=== PATIENT | female | born 1980 | race Two or more races ===

== ENCOUNTER 2024-04-21 12:16 | Emergency (ER) | payer SELFPAY ==
[~2024-04-21] VITALS: Ht 154.9 cm; Wt 113.4 kg
[~2024-04-21 12:16] MED LIST: [UNRECOGNIZED DRUG - REMARK]
[2024-04-21 12:34] VITALS: BP 160/102; TEMP 98.6; O2SAT 100
[2024-04-21] MEDS ORDERED: NAPR-1164 PO (12:44)
== END 2024-04-21 13:00 | disposition home or self-care (01) ==
LOC: ER 12:28
DX: M25.551 Pain in right hip (principal); M25.562 Pain in left knee; M25.561 Pain in right knee; M79.18 Myalgia, other site; Z87.19 Personal history of other diseases of the digestive system; Z90.49 Acquired absence of other specified parts of digestive tract